=== PATIENT | male | born 1950 | race Two or more races ===

== ENCOUNTER 2021-07-15 14:30 | Outpatient (CLI) | payer OTHER | END 2021-07-15 14:45 | disposition home or self-care (01) | LOC: PPH VACUNA 14:30 | PROVIDERS: ATTEND Emergency Medicine Pediatric Emergency Medicine | DX: Z23 Encounter for immunization (principal) ==

== ENCOUNTER 2021-11-21 09:39 | Emergency (ER) | payer OTHER ==
[~2021-11-21] VITALS: Ht 188 cm; Wt 88.5 kg
[2021-11-21] MEDS ORDERED: TOPROL XL50 M1 PO (10:07)
[2021-11-21] MEDS ORDERED: CORTISONE60 GM (10:07)
[2021-11-21] MEDS ORDERED: AMOX-CLAV 875-1 EACH PO (16:10)
[2021-11-21] MEDS ORDERED: KETO10TA2 PO (16:10)
== END 2021-11-21 17:18 | disposition home or self-care (01) ==
LOC: ER 09:39
DX: R60.0 Localized edema (principal)

== ENCOUNTER 2025-01-05 06:00 | Outpatient (CLI) | payer OTHER ==
[~2025-01-05] VITALS: Wt 6.0 kg
[~2025-01-05 06:00] MED LIST: AMOX-CLAV 875-1 EACH PO; CORTISONE60 GM; KETO10TA2 PO; TOPROL XL50 M1 PO
[2025-01-05] MEDS ORDERED: ZIPSOR25 MG PO (10:01)
[2025-01-05 10:28] LABS: HEMATOCRIT 34.4 % (39.0-48.0); HEMOGLOBIN 11.1 g/dL (13-16.00); MEAN CELL VOLUME 82.7 fL (80.0-100.00); MEAN CORPUSCULAR HEMOGLOBIN 26.7 pg (27.00-32.0); MEAN CORPUSCULAR HGB CONC 32.3 g/dl (32.0-36.0); PLATELET COUNT 233 K/uL (150-450); RED BLOOD COUNT 4.16 M/uL (4.00-6.00); RED CELL DISTRIBUTION WIDTH 16.4 % (11.5-14.5)
[2025-01-05 10:41] LABS: COVID-19 AG NEGATIVE (NEGATIVE)
[2025-01-05 10:51] LABS: INR 1.26; PARTIAL THROMBOPLASTIN TIME 28.9 SECONDS (22.0-34.0); PROTHROMBIN TIME 13.5 SECONDS (9.0-11.5)
[2025-01-05 11:15] LABS: ALBUMIN 2.7 gm/dL (3.4-5.0); BILIRUBIN TOTAL 1.05 mg/dL (0.3-1.2); CALCIUM 11.5 mg/dL (8.5-10.1); CHOL HDL RATIO 4.6 (0-5.0); CREATININE SERUM 1.86 mg/dL (0.70-1.30); GFR 35.69; GLOBULINA 6.2 G/DL (2.4-3.5); TOTAL PROTEIN 8.9 gm/dL (6.4-8.2)
[2025-01-05 12:32] LABS: PH,URINE 5.5 (5.0-8.0); URINE APPEARANCE Cloudy; URINE BACTERIA 56.2 uL (0.0-1933); URINE BILIRRUBIN Negative (NEGATIVE); URINE BLOOD Small; URINE CAST 8.98 uL (0.0-1.40); URINE COLOR Yellow; URINE EPITHELIAL CELLS 15.5 uL (0.0-38.8); URINE GLUCOSE Negative (NEGATIVE); URINE KETONE Negative (NEGATIVE); URINE LEUKOCYTE Negative; URINE NITRATE Negative; URINE PROTEIN Negative (NEGATIVE); URINE WBC 11.2 uL (0.0-23.2)
[2025-01-05 13:02] LABS: URINE CRYSTALS FEW /HPF; URINE MUCUS SCANT
[2025-01-05 13:16] LABS: RH POSITIVE
== END 2025-01-05 06:01 | disposition home or self-care (01) ==
LOC: RAD 06:00 → SURH 01-13 07:30 → EDSTATUS 01-13 07:30 → SURH 01-13 18:00
PROVIDERS: ATTEND Orthopaedic Surgery
DX: D64.9 Anemia, unspecified (principal); R10.9 Unspecified abdominal pain; Z79.01 Long term (current) use of anticoagulants; N39.0 Urinary tract infection, site not specified; E78.5 Hyperlipidemia, unspecified; R05.2 Subacute cough; D68.9 Coagulation defect, unspecified; Z03.818 Encounter for observation for suspected exposure to other biological agents ruled out; Z20.828 Contact with and (suspected) exposure to other viral communicable diseases